=== PATIENT | male | born 1980 | race Caucasian/White ===

== ENCOUNTER 2024-08-15 11:53 | Emergency (ER) | payer OTHER, SELFPAY ==
--- NOTE | ~2024-08-15 | XR_ITS ---
EXAMINATION: XR chest 1V portable Exam Date/Time: 08/15/2024 16:06 CDT HISTORY: shortness of breath Comparison: None. RESULT: Lines, tubes, and devices: None. Lungs and pleura: No focal consolidation, pleural effusion, or pneumothorax. Slight rightward rotati on. Cardiomediastinal silhouette: Unremarkable. Other: No acute osseous or upper abdominal finding. IMPRESSION: No acute cardiopulmonary process. Reviewed, dictated and finalized at location K.
--- NOTE | ~2024-08-15 | CT_ITS ---
EXAMINATION: CT abdomen pelvis w con DATE: 08/15/2024 19:14 INDICATION: abd pain and bloating TECHNIQUE: Computed tomography (CT) of the abdomen and pelvis was performed with 100 mL Omnipaque-350 intravenous contrast. Automated exposure control and iterative reconstruction technique were employe d. The dose-length product was 1576.34 mGy-cm. COMPARISON: None. FINDINGS: Lower thorax: Unremarkable Liver: Diffusely low-density parenchyma. Biliary/Gallbladder: Gallbladder is normal. No bile duct dilation. Pancreas: No mass or duct dilation. Spleen: Normal. Adrenals:No mass. Kidneys: No suspicious mass, obstructing stone, or hydronephrosis. GI tract: No small or large bowel dilation. Normal appendix. Mesentery/Peritoneum: No ascites, mass, or free air. Retroperitoneum: No mass. Pelvis: Pelvic organs are within normal limits. Soft Tissues: Soft tissues and body wall unremarkable. Bones: No acute osseous finding. IMPRESSION: Hepatic steatosis. Otherwise unremarkable CT abdomen and pelvis findings. Reviewed, dictated and finalized at location K.
[2024-08-15 12:04] VITALS: BP 148/97; PULSE 98; RESP 20; TEMP 36.9; O2SAT 97
[2024-08-15 13:45] VITALS: BP 147/89; PULSE 83; TEMP 35.8; O2SAT 97
--- NOTE | 2024-08-15 15:25 | ECG_ITS ---
Test Date: 2024-08-15 15:27:27 Measurements Intervals [place] Rate: 85 P: 55 CO: 181 QRS: 11 QRSD: 102 T: 21 QT: 347 QTc: 414 Interpretive Statements SINUS RHYTHM POSSIBLE LEFT ATRIAL ENLARGEMENT BASELINE ARTIFACT- V3 BORDERLINE ECG No previous ECG available for comparison Electronically Signed On 08-15-2024 15:28:45 CDT by Edison Lua D.O.
[2024-08-15 15:45] VITALS: O2SAT 91
[2024-08-15 15:46] VITALS: BP 169/82; PULSE 86; RESP 18; TEMP 36.6; O2SAT 97
--- NOTE | 2024-08-15 15:47 | ED_ITS ---
HPI - SOB/Dyspnea General Chief Complaint: Shortness of Breath/Dyspnea <Mera Bravo DRYING MACHINE BACK TENDER - Last Filed: 08/15/24 15:50> Stated Complaint: Shortness of breath getting worse x 2 weeks <Mera Bravo APRN - Last Filed: 08/15/24 15:50> Time Seen by Provider: 08/15/24 15:15 <Mera Bravo APRN - Last Filed: 08/15/24 15:50> Focused HPI: Patient is a 43-year-old male who presents to the ER with increased shortness of breath that led to multiple syncopal episodes over the last week. He reports he was walking up 2 flights of stairs while at work today when he became very short of breath. One of patient's coworkers told him that his lower extremities look swollen and his boss advised him to go to the ER for evaluation. Patient denies any medical history and does not take any daily medications. He does endorse cigarette smoking and lower extremity edema. Patient denies chest pain but endorses discomfort in his chest. He denies any headaches, recent fevers, or acute back pain. GENERAL: Well-appearing, obese, and in mild respiratory distress. HEAD: Normocephalic, atraumatic. CHEST: Diminished bases upon auscultation. ?Slight respiratory distress. HEART: Regular rate and rhythm.? NEURO: ?Alert and oriented x3. Patient screened in triage and initial orders placed.? ?Additional care and disposition to be based upon?diagnostic testing and treatment. <Mera Bravo APRN - Last Filed: 08/15/24 15:50> Focused HPI: Patient is a 43-year-old male who presents to the ER with increased shortness of breath that led to multiple syncopal episodes over the last week. He reports he was walking up 2 flights of stairs while at work today when he became very short of breath. One of patient's coworkers told him that his lower extremities look swollen and his boss advised him to go to the ER for evaluation. Patient denies any medical history and does not take any daily medications. He does endorse cigarette smoking and lower extremity edema. Patient denies chest pain but endorses discomfort in his chest. He denies any headaches, recent fevers, or acute back pain. GENERAL: Well-appearing, obese, and in mild respiratory distress. HEAD: Normocephalic, atraumatic. CHEST: Diminished bases upon auscultation. ?Slight respiratory distress. HEART: Regular rate and rhythm.? NEURO: ?Alert and oriented x3. Patient screened in triage and initial orders placed.? ?Additional care and disposition to be based upon?diagnostic testing and treatment. <Shadi Vazquez MD - Last Filed: 08/15/24 22:15> History of Present Illness HPI Narrative: Agree with the HPI above and would like to add collateral information from family that states that patient has had a rapid weight gain over last 2 months and gone up 2 different pain size is despite eating healthier. Endorsing abdominal bloating. <Shadi Vazquez MD - Last Filed: 08/15/24 22:15> Related Data Allergies/Adverse Reactions: Allergies Allergy/AdvReac Type Severity Reaction Status Date / Time Penicillins Allergy Intermediate Hives Verified 08/15/24 11:54 <Mera Bravo APRN - Last Filed: 08/15/24 15:50> Review of Systems 2 Review of Systems: As reviewed above in HPI <Shadi Vazquez MD - Last Filed: 08/15/24 22:15> Exam 2 Narrative: GENERAL: [Well-appearing, well-nourished, and in no acute distress.] HEAD: [Normocephalic, atraumatic.] EYES: [PERRLA and EOMI.] ENT: Nares clear, no rhinorrhea or epistaxis. Mucous membranes moist. NECK: Supple. CHEST: [Clear to auscultation. No respiratory distress.] HEART: [Regular rate and rhythm]. No murmur heard. [Normal peripheral pulses.] ABDOMEN: Distended and tender to palpation, soft, no signs of peritonitis, [No rigidity or guarding] EXTREMITIES: Normal range of motion. [No edema.] SKIN: Warm, dry, no rash. NEURO: [No focal deficits]. Alert and oriented [x3.] PSYCH: [Normal mood and affect.] <Shadi Vazquez MD - Last Filed: 08/15/24 22:15> Course Vital Signs Vital signs: Vital Signs Temperature 36.9 C 08/15/24 12:04 Pulse Rate 98 08/15/24 12:04 Respiratory Rate 20 08/15/24 12:04 Blood Pressure 148/97 H 08/15/24 12:04 Pulse Oximetry 97 08/15/24 12:04 Oxygen Delivery Room Air 08/15/24 12:04 Temperature 36.6 C 08/15/24 15:46 Pulse Rate 84 08/15/24 15:53 Respiratory Rate 18 08/15/24 15:53 Blood Pressure 120/78 08/15/24 15:53 Pulse Oximetry 95 08/15/24 15:53 Oxygen Delivery Room Air 08/15/24 15:45 <Mera Bravo, DRYING MACHINE BACK TENDER - Last Filed: 08/15/24 15:50> Vital Signs Temperature 36.9 C 08/15/24 12:04 Pulse Rate 98 08/15/24 12:04 Respiratory Rate 20 08/15/24 12:04 Blood Pressure 148/97 H 08/15/24 12:04 Pulse Oximetry 97 08/15/24 12:04 Oxygen Delivery Room Air 08/15/24 12:04 Temperature 36.6 C 08/15/24 15:46 Pulse Rate 84 08/15/24 15:53 Respiratory Rate 18 08/15/24 15:53 Blood Pressure 120/78 08/15/24 15:53 Pulse Oximetry 95 08/15/24 15:53 Oxygen Delivery Room Air 08/15/24 15:45 <Shadi Vazquez MD - Last Filed: 08/15/24 22:15> MDM - SOB/Dyspnea MDM Narrative Medical decision making narrative: 43-year-old male presenting with several weeks of difficulty in breathing with exertion, feeling tired and malaise as well as rapid weight gain and abdominal bloating and distention with constipation. Denies any nausea, vomiting or diarrhea. No chest pain shortness a breath at rest. States that he gets short of breath even with minimal exertion. No cardiac history, has not seen a medical provider in several years and does not have a PCP. No fever, chills. His abdomen is distended and tender to palpation but no overlying skin changes or signs of peritonitis. Normal vital signs, nonpitting edema, clear breath sounds and strong symmetric pulses throughout. Suspect potential rapid weight gain could be a potential intra-abdominal process or infection versus malignant process. TSH ordered for potential endocrine pathology, electrolytes ordered. CBC, CMP, lipase. EKG and chest x-ray as well as troponin and BNP obtained. Workup is unrevealing, no leukocytosis or anemia. Slightly low but unremarkable platelet count. Normal coagulation panel. Electrolytes are unremarkable, normal creatinine, normal glucose, normal LFTs. Negative troponin, negative BNP. Normal TSH. Urinalysis shows some dehydration and ketones but otherwise unremarkable. Negative urine drug screen. Chest x-ray shows no acute cardiopulmonary process. CT of the abdomen pelvis shows hepatic steatosis otherwise no acute findings. EKG shows sinus rhythm. Patient's expressed concern about possibility of undiagnosed sleep apnea given patient's difficulty with sleep, insomnia and waking up frequently at the night, gasping for breath. Very clinically does match obstructive sleep apnea and could be a cause of patient's symptomatology including feeling malaise tired and having some shortness of breath. He does have an upcoming prior and may care provider appointment in several weeks and encouraged him to follow-up with them about this including the workup here today but he otherwise has no acute urgent or emergent concerns and is safe for discharge. Family and patient felt comfortable and patient was safely discharged. <Shadi Vazquez MD - Last Filed: 08/15/24 22:15> Medical Records Attestation: I reviewed the patient's medical records. <Shadi Vazquez MD - Last Filed: 08/15/24 22:15> Lab Data Attestation: I reviewed the patient's lab results. <Shadi Vazquez MD - Last Filed: 08/15/24 22:15> Result diagrams: 08/15/24 15:42 08/15/24 15:42 <Mera Bravo APRN - Last Filed: 08/15/24 15:50> Labs: Lab Results 08/15/24 08/15/24 08/15/24 Range/Units 15:41 15:42 15:49 WBC 9.9 (4.5-10.0) K/mm3 RBC 5.46 (4.6-6.20) M/mm3 Hgb 16.2 (14.0-18.0) g/dL Hct 47.2 (42.0-52.0) % MCV 86.4 (80-100) fl MCH 29.7 (26-34) pg MCHC 34.3 (32-36) g/dl RDW 13.0 (11.5-14.5) % Plt Count 139 L (150-375) k/mm3 MPV 12.4 H (7.4-10.4) fl Immature Gran % (Auto) 0.8 H (0-0.5) % Neut % (Auto) 56.2 (45.5-73.1) % Lymph % (Auto) 31.3 (18.3-44.2) % [place] % (Auto) 10.2 H (2.6-8.5) % Eos % (Auto) 1.0 (0-4.4) % Baso % (Auto) 0.5 (0.2-1.2) % Lymph # (Auto) 3.09 (0.9-3.2) K/mm3 [place] # (Auto) 1.0 H (0.1-0.6) K/mm3 Eos # (Auto) 0.1 (0-0.3) K/mm3 Baso # (Auto) 0.1 (0.0-0.1) K/mm3 Abs Immat Gran (auto) 0.08 H (0.00-0.031) K/mm3 Absolute Neuts (auto) 5.6 (1.3-6.7) K/mm3 Absolute Nucleated RBC 0.000 (0.0-0.012) K/mm3 Nucleated RBC % 0.0 (0.0-0.2) % % Immature Plt Fraction 19.1 H (0.9-11.2) % PT 13.3 (11.1-14.7) Seconds INR 1.0 APTT 28.8 (22.3-36.8) Seconds Sodium 138 (137-145) mmol/L Potassium 4.1 (3.4-5.0) mmol/L Chloride 105 (98-107) mmol/L Carbon Dioxide 23 (22-30) mmol/L Anion Gap 10 (4-12) mmol/L BUN 7 L (9-20) mg/dL Creatinine 0.57 L (0.7-1.3) mg/dL Estim Creat Clear Calc 191 ml/min Estimated GFR > 60 (59 - ) Glucose 85 (65-110) mg/dL POC Capillary Glucose 91 (65-105) mg/dl Calcium 9.6 (8.4-10.2) mg/dL Total Bilirubin 0.7 (0.2-1.3) mg/dL AST 37 (17-59) U/L ALT 54 H (6-50) U/L Alkaline Phosphatase 73 (38-126) U/L Troponin I < 0.012 (0.000-0.034) ng/mL NT-Pro-B Natriuret Pep < 20 (19.9-100) pg/mL Total Protein 7.7 (6.3-8.2) g/dL Albumin 4.5 (3.5-5.1) g/dL TSH (Reflex) 0.967 (0.465-4.68) uIU/mL Urine Color (Yellow) Urine Appearance (Clear) Urine pH (5.0-9.0) Ur Specific [place] (1.001-1.035) Urine Protein (Negative) mg/dL Urine Glucose (UA) (Negative) mg/dL Urine Ketones (Negative) mg/dL Ur Blood (Man) (Negative) Urine Nitrate (Negative) Urine Bilirubin (Negative) Urine Urobilinogen (<2.0) mg/dL Leukocyte Esterase Rfl (Negative) FERNANDO/UL Urine RBC (0-2) /hpf Urine WBC (0-3) /hpf Ur Squamous Epith Cells (Few) /hpf Urine Bacteria /hpf Urine Casts Urine Opiates Screen (Negative) Urine Methadone Screen (Negative) Ur Barbiturates Screen (Negative) Ur Phencyclidine Scrn (Negative) Ur Amphetamine Screen (Negative) U Benzodiazepines Scrn (Negative) Urine Cocaine Screen (Negative) U Cannabinoids Screen (Negative) 08/15/24 Range/Units 19:40 WBC (4.5-10.0) K/mm3 RBC (4.6-6.20) M/mm3 Hgb (14.0-18.0) g/dL Hct (42.0-52.0) % MCV (80-100) fl MCH (26-34) pg MCHC (32-36) g/dl RDW (11.5-14.5) % Plt Count (150-375) k/mm3 MPV (7.4-10.4) fl Immature Gran % (Auto) (0-0.5) % Neut % (Auto) (45.5-73.1) % Lymph % (Auto) (18.3-44.2) % [place] % (Auto) (2.6-8.5) % Eos % (Auto) (0-4.4) % Baso % (Auto) (0.2-1.2) % Lymph # (Auto) (0.9-3.2) K/mm3 [place] # (Auto) (0.1-0.6) K/mm3 Eos # (Auto) (0-0.3) K/mm3 Baso # (Auto) (0.0-0.1) K/mm3 Abs Immat Gran (auto) (0.00-0.031) K/mm3 Absolute Neuts (auto) (1.3-6.7) K/mm3 Absolute Nucleated RBC (0.0-0.012) K/mm3 Nucleated RBC % (0.0-0.2) % % Immature Plt Fraction (0.9-11.2) % PT (11.1-14.7) Seconds INR APTT (22.3-36.8) Seconds Sodium (137-145) mmol/L Potassium (3.4-5.0) mmol/L Chloride (98-107) mmol/L Carbon Dioxide (22-30) mmol/L Anion Gap (4-12) mmol/L BUN (9-20) mg/dL Creatinine (0.7-1.3) mg/dL Estim Creat Clear Calc ml/min Estimated GFR (59 - ) Glucose (65-110) mg/dL POC Capillary Glucose (65-105) mg/dl Calcium (8.4-10.2) mg/dL Total Bilirubin (0.2-1.3) mg/dL AST (17-59) U/L ALT (6-50) U/L Alkaline Phosphatase (38-126) U/L Troponin I (0.000-0.034) ng/mL NT-Pro-B Natriuret Pep (19.9-100) pg/mL Total Protein (6.3-8.2) g/dL Albumin (3.5-5.1) g/dL TSH (Reflex) (0.465-4.68) uIU/mL Urine Color Yellow (Yellow) Urine Appearance Clear (Clear) Urine pH 5.5 (5.0-9.0) Ur Specific [place] > 1.045 H (1.001-1.035) Urine Protein Trace (Negative) mg/dL Urine Glucose (UA) 2+ H (Negative) mg/dL Urine Ketones Trace H (Negative) mg/dL Ur Blood (Man) Negative (Negative) Urine Nitrate Negative (Negative) Urine Bilirubin Negative (Negative) Urine Urobilinogen 1.0 (<2.0) mg/dL Leukocyte Esterase Rfl Negative (Negative) FERNANDO/UL Urine RBC 0-2 (0-2) /hpf Urine WBC 0-5 (0-3) /hpf Ur Squamous Epith Cells None seen (Few) /hpf Urine Bacteria None seen /hpf Urine Casts 0-2 Urine Opiates Screen Negative (Negative) Urine Methadone Screen Negative (Negative) Ur Barbiturates Screen Negative (Negative) Ur Phencyclidine Scrn Negative (Negative) Ur Amphetamine Screen Negative (Negative) U Benzodiazepines Scrn Negative (Negative) Urine Cocaine Screen Negative (Negative) U Cannabinoids Screen Negative (Negative) <Mera Bravo, DRYING MACHINE BACK TENDER - Last Filed: 08/15/24 15:50> Lab Results 08/15/24 08/15/24 08/15/24 Range/Units 15:41 15:42 15:49 WBC 9.9 (4.5-10.0) K/mm3 RBC 5.46 (4.6-6.20) M/mm3 Hgb 16.2 (14.0-18.0) g/dL Hct 47.2 (42.0-52.0) % MCV 86.4 (80-100) fl MCH 29.7 (26-34) pg MCHC 34.3 (32-36) g/dl RDW 13.0 (11.5-14.5) % Plt Count 139 L (150-375) k/mm3 MPV 12.4 H (7.4-10.4) fl Immature Gran % (Auto) 0.8 H (0-0.5) % Neut % (Auto) 56.2 (45.5-73.1) % Lymph % (Auto) 31.3 (18.3-44.2) % [place] % (Auto) 10.2 H (2.6-8.5) % Eos % (Auto) 1.0 (0-4.4) % Baso % (Auto) 0.5 (0.2-1.2) % Lymph # (Auto) 3.09 (0.9-3.2) K/mm3 [place] # (Auto) 1.0 H (0.1-0.6) K/mm3 Eos # (Auto) 0.1 (0-0.3) K/mm3 Baso # (Auto) 0.1 (0.0-0.1) K/mm3 Abs Immat Gran (auto) 0.08 H (0.00-0.031) K/mm3 Absolute Neuts (auto) 5.6 (1.3-6.7) K/mm3 Absolute Nucleated RBC 0.000 (0.0-0.012) K/mm3 Nucleated RBC % 0.0 (0.0-0.2) % % Immature Plt Fraction 19.1 H (0.9-11.2) % PT 13.3 (11.1-14.7) Seconds INR 1.0 APTT 28.8 (22.3-36.8) Seconds Sodium 138 (137-145) mmol/L Potassium 4.1 (3.4-5.0) mmol/L Chloride 105 (98-107) mmol/L Carbon Dioxide 23 (22-30) mmol/L Anion Gap 10 (4-12) mmol/L BUN 7 L (9-20) mg/dL Creatinine 0.57 L (0.7-1.3) mg/dL Estim Creat Clear Calc 191 ml/min Estimated GFR > 60 (59 - ) Glucose 85 (65-110) mg/dL POC Capillary Glucose 91 (65-105) mg/dl Calcium 9.6 (8.4-10.2) mg/dL Total Bilirubin 0.7 (0.2-1.3) mg/dL AST 37 (17-59) U/L ALT 54 H (6-50) U/L Alkaline Phosphatase 73 (38-126) U/L Troponin I < 0.012 (0.000-0.034) ng/mL NT-Pro-B Natriuret Pep < 20 (19.9-100) pg/mL Total Protein 7.7 (6.3-8.2) g/dL Albumin 4.5 (3.5-5.1) g/dL TSH (Reflex) 0.967 (0.465-4.68) uIU/mL Urine Color (Yellow) Urine Appearance (Clear) Urine pH (5.0-9.0) Ur Specific [place] (1.001-1.035) Urine Protein (Negative) mg/dL Urine Glucose (UA) (Negative) mg/dL Urine Ketones (Negative) mg/dL Ur Blood (Man) (Negative) Urine Nitrate (Negative) Urine Bilirubin (Negative) Urine Urobilinogen (<2.0) mg/dL Leukocyte Esterase Rfl (Negative) FERNANDO/UL Urine RBC (0-2) /hpf Urine WBC (0-3) /hpf Ur Squamous Epith Cells (Few) /hpf Urine Bacteria /hpf Urine Casts Urine Opiates Screen (Negative) Urine Methadone Screen (Negative) Ur Barbiturates Screen (Negative) Ur Phencyclidine Scrn (Negative) Ur Amphetamine Screen (Negative) U Benzodiazepines Scrn (Negative) Urine Cocaine Screen (Negative) U Cannabinoids Screen (Negative) 08/15/24 Range/Units 19:40 WBC (4.5-10.0) K/mm3 RBC (4.6-6.20) M/mm3 Hgb (14.0-18.0) g/dL Hct (42.0-52.0) % MCV (80-100) fl MCH (26-34) pg MCHC (32-36) g/dl RDW (11.5-14.5) % Plt Count (150-375) k/mm3 MPV (7.4-10.4) fl Immature Gran % (Auto) (0-0.5) % Neut % (Auto) (45.5-73.1) % Lymph % (Auto) (18.3-44.2) % [place] % (Auto) (2.6-8.5) % Eos % (Auto) (0-4.4) % Baso % (Auto) (0.2-1.2) % Lymph # (Auto) (0.9-3.2) K/mm3 [place] # (Auto) (0.1-0.6) K/mm3 Eos # (Auto) (0-0.3) K/mm3 Baso # (Auto) (0.0-0.1) K/mm3 Abs Immat Gran (auto) (0.00-0.031) K/mm3 Absolute Neuts (auto) (1.3-6.7) K/mm3 Absolute Nucleated RBC (0.0-0.012) K/mm3 Nucleated RBC % (0.0-0.2) % % Immature Plt Fraction (0.9-11.2) % PT (11.1-14.7) Seconds INR APTT (22.3-36.8) Seconds Sodium (137-145) mmol/L Potassium (3.4-5.0) mmol/L Chloride (98-107) mmol/L Carbon Dioxide (22-30) mmol/L Anion Gap (4-12) mmol/L BUN (9-20) mg/dL Creatinine (0.7-1.3) mg/dL Estim Creat Clear Calc ml/min Estimated GFR (59 - ) Glucose (65-110) mg/dL POC Capillary Glucose (65-105) mg/dl Calcium (8.4-10.2) mg/dL Total Bilirubin (0.2-1.3) mg/dL AST (17-59) U/L ALT (6-50) U/L Alkaline Phosphatase (38-126) U/L Troponin I (0.000-0.034) ng/mL NT-Pro-B Natriuret Pep (19.9-100) pg/mL Total Protein (6.3-8.2) g/dL Albumin (3.5-5.1) g/dL TSH (Reflex) (0.465-4.68) uIU/mL Urine Color Yellow (Yellow) Urine Appearance Clear (Clear) Urine pH 5.5 (5.0-9.0) Ur Specific Mom[place] > 1.045 H (1.001-1.035) Urine Protein Trace (Negative) mg/dL Urine Glucose (UA) 2+ H (Negative) mg/dL Urine Ketones Trace H (Negative) mg/dL Ur Blood (Man) Negative (Negative) Urine Nitrate Negative (Negative) Urine Bilirubin Negative (Negative) Urine Urobilinogen 1.0 (<2.0) mg/dL Leukocyte Esterase Rfl Negative (Negative) FERNANDO/UL Urine RBC 0-2 (0-2) /hpf Urine WBC 0-5 (0-3) /hpf Ur Squamous Epith Cells None seen (Few) /hpf Urine Bacteria None seen /hpf Urine Casts 0-2 Urine Opiates Screen Negative (Negative) Urine Methadone Screen Negative (Negative) Ur Barbiturates Screen Negative (Negative) Ur Phencyclidine Scrn Negative (Negative) Ur Amphetamine Screen Negative (Negative) U Benzodiazepines Scrn Negative (Negative) Urine Cocaine Screen Negative (Negative) U Cannabinoids Screen Negative (Negative) <Shadi Vazquez MD - Last Filed: 08/15/24 22:15> Imaging Data Attestation: I personally reviewed and interpreted this imaging study as follows: < Shadi Vazquez MD - Last Filed: 08/15/24 22:15> My impression: Impressions Chest X-Ray 08/15/24 16:23 IMPRESSION: No acute cardiopulmonary process. Abdomen/Pelvis CT 08/15/24 19:15 IMPRESSION: Hepatic steatosis. Otherwise unremarkable CT abdomen and pelvis findings. <Shadi Vazquez MD - Last Filed: 08/15/24 22:15> Discharge Plan Discharge Clinical Impression: SOB (shortness of breath), Constipation, Sleep apnea-like behavior, Fatty liver <Mera Bravo APRN - Last Filed: 08/15/24 15:50> Patient Disposition: Home <Mera Bravo APRN - Last Filed: 08/15/24 15:50> Condition: Stable <Mera Bravo APRN - Last Filed: 08/15/24 15:50> Instructions: Antibiotic Form, Constipation (DC), Shortness of Breath (ED) <Mera Bravo APRN - Last Filed: 08/15/24 15:50> Additional Instructions: Your symptoms could be a combination of factors including undiagnosed sleep apnea causing your shortness of breath and difficulty sleeping at night. I do have some fatty infiltrates of your liver which is likely a chronic process but also may be contributing to overall health. Follow-up with your primary care provider on the of this month and return with any new or worsening concerns at any time. <Mera Bravo APRN - Last Filed: 08/15/24 15:50> Patient Language: E[place]rean <Mera Bravo APRN - Last Filed: 08/15/24 15:50> Prescriptions: New magnesium hydroxide [Milk of Magnesia] 400 mg/5 mL suspension 15 ml PO BID PRN (Reason: constipation) Qty: 355 0RF polyethylene glycol 3350 [Miralax] 17 gram/dose powder 17 g PO BID Qty: 119 0RF <Mera Bravo APRN - Last Filed: 08/15/24 15:50> Follow-up/Referrals: PHYSICIAN,MANAGER PRIMARY CARE [Non-Staff] - <Mera Bravo APRN - Last Filed: 08/15/24 15:50> Time of Disposition: 20:25 <Mera Bravo APRN - Last Filed: 08/15/24 15:50> 20:25 <Shadi Vazquez MD - Last Filed: 08/15/24 22:15>
[2024-08-15 15:48] LABS: Basophils Absolute Auto 0.1 K/mm3 (0.0-0.1); Basophils Percent Auto 0.5 % (0.2-1.2); Eosinophils Absolute Auto 0.1 K/mm3 (0-0.3); Hematocrit 47.2 % (42.0-52.0); Hemoglobin 16.2 g/dL (14.0-18.0); Immature Granulocyte Absolute 0.08 K/mm3 (0.00-0.031); Immature Granulocyte Percent A 0.8 % (0-0.5); Immature Platelet Fraction Pct 19.1 % (0.9-11.2); Lymphocytes Absolute Auto 3.09 K/mm3 (0.9-3.2); Lymphocytes Percent Auto 31.3 % (18.3-44.2); Mean Corpuscular HGB Conc 34.3 g/dl (32-36); Mean Corpuscular Hemoglobin 29.7 pg (26-34); Mean Corpuscular Volume 86.4 fl (80-100); Mean Platelet Volume 12.4 fl (7.4-10.4); Monocytes Percent Auto 10.2 % (2.6-8.5); Neutrophils Absolute Auto 5.6 K/mm3 (1.3-6.7); Neutrophils Percent Auto 56.2 % (45.5-73.1); Platelet Count Result 139 k/mm3 (150-375); Red Blood Count 5.46 M/mm3 (4.6-6.20); White Blood Count 9.9 K/mm3 (4.5-10.0)
[2024-08-15 15:52] LABS: Glucose Point of Care 91 mg/dl (65-105)
[2024-08-15 15:53] VITALS: BP 120/78; PULSE 84; RESP 18; O2SAT 95
--- NOTE | 2024-08-15 15:53 | PC.NURSE ---
Pt unable to give urine sample at this time.
[2024-08-15 15:58] LABS: Alanine Aminotransferase 54 U/L (6-50); Albumin Level 4.5 g/dL (3.5-5.1); Alkaline Phosphatase 73 U/L (38-126); Anion Gap 10 mmol/L (4-12); Aspartate Amino Transferase 37 U/L (17-59); Bilirubin,Total 0.7 mg/dL (0.2-1.3); Blood Urea Nitrogen 7 mg/dL (9-20); Calcium 9.6 mg/dL (8.4-10.2); Carbon Dioxide 23 mmol/L (22-30); Chloride 105 mmol/L (98-107); Estimated CRCL calculation 191 ml/min; Estimated Glomerular Filt Rate > 60; Glucose 85 mg/dL (65-110); Potassium 4.1 mmol/L (3.4-5.0); Sodium 138 mmol/L (137-145); Total Protein 7.7 g/dL (6.3-8.2)
[2024-08-15 16:10] LABS: Prothrombin Time 13.3 Seconds (11.1-14.7)
[2024-08-15 16:11] LABS: Partial Thromboplastin Time 28.8 Seconds (22.3-36.8)
[2024-08-15 16:15] LABS: NT Pro B Type Natriuretic Pept < 20 pg/mL (19.9-100); Troponin I < 0.012 ng/mL (0.000-0.034)
--- OUTSIDE RECORDS SUMMARY | 2024-08-15 16:45 | XMS_ITS | Clinical Summary ---
Author Organization [facility] [employer] Address [address] [place] [address] Care Team Providers Care Variety Lathe Operator Name Role Phone PcpTed -Fm Primary Care Provider U navailable Source Comments [facility] [employer],non-owned Affiliates and Associated Physician Practices is amultiple site organization consisting of ambulatory clinics and hospital sitesin [place], [place], [place]. This disclosure is being madepursuant to the Care Everywhere program and may not contain all information available regarding this patient. Last updated 17.[facility] [employer] Allergies Active Allergy Reactions Criticality Noted Date Comments Penicillins Other 09/07/2017 Patient does not remember since he was child Medications * Be aware that medications may not be up to date on this document. Alwaysverify current medications with the patient. vitamin D3 (CHOLECALCIFEROL) 25 MCG (1000 UNITS) tablet Take 1,000 Units by mouth 2 times daily Active Salida-3 Fatty Acids (FISH OIL) 1000 MG capsule Take 1,000 mg by mouth 2 times daily Active Multiple Vitamin Take 1 tablet by mouth once daily Active losartan - hydroCHLOROthiazide (HYZAAR) 50-12.5 MG tablet Take 1 (one) tablet by mouth once daily 90 tablet 3 03/15/19 21 Active fenofibrate (TRICOR) 145 MG tablet Take 1 (one) tablet by mouth once daily 30 tablet 1 03/15/19 21 Active diclofenac sodium (VOLTAREN) 1 % gel Apply 4 (four) g to affected area 4 times daily 2 gm amount for elbow, wrist or hand 4 gm amount for knee, ankle or foot 150 g 3 03/15/19 21 Active Hospital, Clinic, or Other Facility Administered Medication Ordered Dose Route Frequency Start Date End Date Status 0.9% NaCl injection 10 mLIndications:MILES (dyspnea on exertion) 10 mL IK PRN 11/10/2019 Active Active Problems Problem Noted Date Diagnosed Date FH: CAD (coronary artery disease) 11/07/2019 Obesity (BMI 30.0-34.9) 10/31/2019 MILES (dyspnea on exertion) 10/31/2019 Obstructive sleep apnea syndrome 10/31/2019 Chronic fatigue 10/31/2019 Gastroesophageal reflux disease without esophagi tis 10/31/2019 Precordial pain 10/31/2019 Other hyperlipidemia 10/31/2019 Asthma in child 10/31/2019 Hyperlipidemia Chest pain Dyspnea on exertion Immunizations Immunization Administration Dates Next Due TDAP (7yrs+) 10/31/2019 iNFLUENZA VACCINE, RECOM-STONE, QUADR. (FLUBLOCK QUADRIVALENT; 18Y+) (RIV4) 10/31/2019 Family History Medical History Relation Name Comments CAD (Coronary Artery Disease) Brother CAD (Coronary Artery Disease) Father High Cholesterol Father Hypertension Father CAD (Coronary Artery Disease) Mother Hypertension Mother Relation Name Status Comments Brother Father Alive Mother Alive Social History Tobacco Use Types Packs/Day Years Used Date Smoking Tobacco: Every Day Cigarettes 0.5 29.5 Started: 1995 Smokeless Tobacco: Never Tobacco Cessation:Ready to Q uit: No; Counseling Given: No Alcohol Use Standard Drinks/Week Comments Yes 0 (1 standard drink = 0.6 oz pur e alcohol) social Sex and Gender Information Value Date Recorded Sex Assigned at Not on file Legal Sex Male 8:31 AM WARP PICKER Gender Identity Not on file Sexual Orientation Not on file Last Filed Vital Signs Vital Sign Reading Time Taken Comments Blood Pressure 134/83 03/15/2020 4:12 PM WARP PICKER Pulse 87 03/15/2020 4:12 PM WARP PICKER Temperature 37 C (98.6 F) 03/15/2020 4:12 PM WARP PICKER Respiratory Rate 18 03/15/2020 4:12 PM WARP PICKER Oxygen Saturation 99% 03/15/2020 4:12 PM WARP PICKER Inhaled Oxygen Concentration - - Weight 126.7 kg (279 lb 6.4 oz) 03/15/2020 4:12 PM WARP PICKER Height 172.7 cm (5' 8) 03/15/2020 4:12 PM WARP PICKER Body Mass Index 42.48 03/15/2020 4:12 PM WARP PICKER Plan of Treatment Health Maintenance Due Date Last Done Comments HIV SCREENING 08/20/1994 HEPATITIS C SCREENING 08/16/1997 HEPATITIS B VACCINE (1 of 3 - 19+ 3-dose series) 08/20/1998 SCREENING FOR DIABETES 11/02/2022 0, 09/22/2018, 09/22/2018, Additional history exists COVID-19 VACCINE ( - season) 2023 DEPRESSION SCREENING 02/17/2024 INFLUENZA VACCINE (Season Ended) 2024 10/31/2019 LIPID TESTING 11/28/2024 11/29/2019, 11/03/2019 ZOSTER VACCINE (1 of 2) 08/20/2029 DTAP/TDAP/TD VACCINES (2 - Td or Tdap) 10/30/2029 10/31/2019 HIB VACCINE Aged Out No longer eligi ble based on patient's age to complete this topic HPV VACCINE Aged Out No longer eligi ble based on patient's age to complete this topic MENINGOCOCCAL (Group B) VACCINE SHARED DECISION-MAKING Aged Out No longer eligible based on patient's age to complete this topic MENINGOCOCCAL GROUPS A/C/Y/W VACCINE Aged Out No longer eligible based on patient's age to complete this topic PNEUMOCOCCAL VACCINE Discontinued Procedures Procedure Name Priority Date/Time Associated Diagnosis Comments LIPID PROFILE Routine 11/29/2019 7:35 AM CDT Mixed hyperlipidemia COMPREHENSIVE METABOLIC PANEL Routine 11/03/2019 8:56 AM CDT Routine general medical examination at a health care facility from Last 3 Months or Most Recently Relevant to Health Maintenance Results * (ABNORMAL) LIPID PROFILE (11/29/2019 7:35 AM CDT) Cholesterol 206(H) 100 - 199 mg/dL [facility] ACCOUNT BILL Triglycerides 412(H) 0 - 149 mg/dL [facility] ACCOUNT BILL HDL Cholesterol 31(L) >39 mg/dL [facility] ACCOUNT BILL VLDL Calculated 70(H) 5 - 40 mg/dL [facility] ACCOUNT BILL LDL Calculated 105(H) 0 - 99 mg/dL [facility] ACCOUNT BILL Comment NOT NEEDED [facility] ACCOUNT BILL Comment: FASTING Ancillary determined the test is not needed. Blood BLOOD SPECIMEN / Unknown 11/29/2019 7:35 AM CDT 11/29/2019 Narrative Resulting Agency Comment Lab [facility] performed at: [facility] [address] [id number] Jarvis Greenfield MD LAB - CHEMISTRY ORDERABLES Final Result [facility] ACCOUNT BILL [address] [place] [address] * (ABNORMAL) COMPREHENSIVE METABOLIC PANEL (11/03/2019 8:56 AM CDT) Pathologist [facility] Glucose 100(H) 65 - 99 mg/dL [facility] INSURANCE BILL BUN 11 6 - 24 mg/dL [facility] INSURANCE BILL Creatinine 0.72(L) 0.76 - 1.27 mg/dL [facility] INSURANCE BILL BUN/Creatinine Ratio 15 9 - 20 [facility] INSURANCE BILL Sodium 139 134 - 144 mmol/L [facility] INSURANCE BILL Potassium 4.2 3.5 - 5.2 mmol/L [facility] INSURANCE BILL Chloride 103 96 - 106 mmol/L [facility] INSURANCE BILL CO2 22 20 - 29 mmol/L [facility] INSURANCE BILL Calcium 9.2 8.7 - 10.2 mg/dL [facility] INSURANCE BILL Protein Total 6.8 6.0 - 8.5 g/dL [facility] INSURANCE BILL Albumin 4.1 4.0 - 5.0 g/dL [facility] INSURANCE BILL Globulin Total 2.7 1.5 - 4.5 g/dL [facility] INSURANCE BILL Albumin/Globulin Ratio 1.5 1.2 - 2.2 [facility] INSURANCE BILL Bilirubin Total 0.4 0.0 - 1.2 mg/dL [facility] INSURANCE BILL Alkaline Phosphatase 71 39 - 117 IU/L [facility] INSURANCE BILL AST 26 0 - 40 IU/L [facility] INSURANCE BILL ALT 41 0 - 44 IU/L [facility] INSURANCE BILL Blood BLOOD SPECIMEN / Unknown 11/03/2019 8:56 AM CDT 11/03/2019 Narrative Resulting Agency Comment Lab Testing performed at: [facility] [address] [id number] [place] Jarvis Greenfield MD LAB - CHEMISTRY ORDERABLES Final Result [facility] INSURANCE BILL [address] [place] [address] from Last 3 Months or Most Recently Relevant to Health Maintenance Insurance Care Teams Variety Lathe Operator Relationship Specialty Start Date End Date Ted Guerrier PCP - General 09/12/22
--- OUTSIDE RECORDS SUMMARY | 2024-08-15 16:45 | XMS_ITS | Clinical Summary ---
Author Organization [facility] Address [address] [address] [place] [address] Phone Care Team Providers Care Cnc Specialist Name Role Phone Unavailable Primary Care Provider Unavailabl e Allergies Active Allergy Reactions Criticality Noted Date Comments Penicillins Unknown 12/15/2017 Medications HYDROcodone-aceta minophen (NORCO) 5-325 mg tablet Take 1 Tablet by mouth every 6 hours as needed for Pain. Max Daily Amount: 4 Tablets 6 Tablet 8 Active ondansetron (ZOFRAN ODT) 4 mg Tablet, Rapid Dissolve Take 1 Tablet (4 mg) by mouth every 6 hours as needed for Nausea Dissolve tablet on top of tongue, then swallow with saliva.. 15 Tablet 8 Active acetaminophen-caf feine-butalbital (FIORICET) 325-40-50 mg tablet Take 1 Tablet by mouth every 4 hours as needed for Headaches. 15 Tablet 9 Active prochlorperazine maleate (COMPAZINE) 10 mg tablet Take 1 Tablet (10 mg) by mouth every 6 hours as needed for Nausea. 15 Tablet None 9 Active ketorolac tromethamine (TORADOL) 10 mg tablet Take 1 Tablet (10 mg) by mouth every 6 hours as needed for Pain. 12 Tablet None 9 Active Social History Tobacco Use Types Packs/Day Years Used Date Smoking Tobacco: Every Day Smokeless Tobacco: Never Sex and Gender Information Value Date Recorded Sex Assigned at Not on file Legal Sex Male 12:50 AM CDT Gender Identity Not on file Sexual Orientation Not on file Last Filed Vital Signs Vital Sign Reading Time Taken Comments Blood Pressure 122/82 09/22/2018 3:15 PM CDT Pulse 67 09/22/2018 3:00 PM CDT Temperature 37.2 C (99 F) 09/22/2018 11:11 AM CDT Respiratory Rate 11 09/22/2018 3:00 PM CDT Oxygen Saturation 94% 09/22/2018 3:00 PM CDT Inhaled Oxygen Concentration - - Weight 104.3 kg (230 lb) 09/22/2018 11:11 AM CDT Height 170.2 cm (5' 7) 09/22/2018 11:11 AM CDT Body Mass Index 36.02 09/22/2018 11:11 AM CDT Plan of Treatment Health Maintenance Due Date Last Done Comments DTAP/TDAP/TD VACCINES (1 - Tdap) 08/20/1998 HEPATITIS B VACCINES (1 of 3 - 19+ 3-dose series) 08/20/1998 INFLUENZA VACCINE (#1) 2023 HPV VACCINES Aged Out No longer eligi ble based on patient's age to complete this topic
--- OUTSIDE RECORDS SUMMARY | 2024-08-15 16:45 | XMS_ITS | Clinical Summary ---
Author Organization [facility] Address [address] [place] [address] Care Team Providers Care Senior Mechanical Development Engineer Name Role Phone No, Physician Primary Care Provider [phone] Allergies Active Allergy Reactions Criticality Noted Date Comments Penicillins Other (See comments) Low 01/15/2022 Unknown, pt states he was told Medications polyethylene glycol (MIRALAX) 17 gram/dose bulk powder Take 17 g by mouth daily 238 g 06/21/2024 Active Encounters Date Type Department Care Team Description 06/20/2024 9:47 PM CDT - 06/21/2024 1:10 AM CDT [facility] Emergency Department [address] [place] [address] Bin Esposito MD Abdominal pain (Primary Dx); Constipation, unspecified constipation type Discharge Disposition: Discharge to home or self care from Last 3 Months Immunizations Immunization Administration Dates Next Due Tdap 01/15/2022 Social History Tobacco Use Types Packs/Day Years Used Date Smoking Tobacco: Never Assessed Personal Safety Answer Date Recorded Have you ever been in or are you currently in a harmful physical or emotional relationship or is someone making you feel afraid or unsafe? Denies 06/20/2024 Sex and Gender Information Value Date Recorded Sex Assigned at Not on file Legal Sex Male 8:15 PM ECONOMIC SPECIALIST Gender Identity Not on file Sexual Orientation Not on file Last Filed Vital Signs Vital Sign Reading Time Taken Comments Blood Pressure 126/74 06/21/2024 12:00 AM CDT Pulse 82 06/21/2024 12:00 AM CDT Temperature 36.7 C (98 F) 06/20/2024 9:13 PM CDT Respiratory Rate 18 06/20/2024 9:13 PM CDT Oxygen Saturation 95% 06/21/2024 12: 00 AM CDT Inhaled Oxygen Concentration - - Weight 126.8 kg (279 lb 8.7 oz) 01/15/2022 9:31 PM ECONOMIC SPECIALIST Height - - Body Mass Index - - Plan of Treatment Health Maintenance Due Date Last Done Comments Depression Screening 1979 Hepatitis C Screening 1979 Varicella Vaccines (1 of 2 - 13+ 2-dose series) 08/20/1992 Hepatitis B Screening 08/20/1997 Regular Well Visit/Exam 18-64 08/20/1997 Pneumococcal vaccine <65 (1 of 2 - PCV) 08/20/1998 Influenza Vaccine (Season Ended) 2024 10/31/2019 DTaP/Tdap/Td Vaccine (3 - Td or Tdap) 01/16/2032 01/15/2022, 10/31/2019 HPV Vaccines Aged Out No longer eligi ble based on patient's age to complete this topic Procedures Procedure Name Priority Date/Time Associated Diagnosis Comments CT ABDOMEN PELVIS W CONTRAST ED 06/20/2024 11:55 PM CDT EGFR STAT 06/20/2024 9:19 PM CDT DIFFERENTIAL AUTO STAT 06/20/2024 9:1 9 PM CDT LIPASE STAT 06/20/2024 9:19 PM CDT COMPREHENSIVE METABOLIC PANEL STAT 06/20/2024 9:19 PM CDT CBC WITH AUTO DIFFERENTIAL STAT 06/20/2024 9:19 PM CDT from Last 3 Months Results * CT Abdomen Pelvis W Contrast (06/20/2024 11:55 PM CDT) Anatomical Region Laterality Modality Body N/A Computed Tomogra phy 06/20/2024 11:5 8 PM CDT Narrative 06/21/2024 12:01 AM CDT EXAM DESCRIPTION: CT ABDOMEN PELVIS W CONTRAST REASON FOR STUDY: LLQ abdominal pain Constipation for 1 month TECHNIQUE: CT scan of the abdomen and pelvis performed with intravenous and without oral contrast using helical scanning technique with dynamic intravenous contrast injection. Reconstructed coronal and sagittal MPR images reviewed. All images stored on PACS. Automated exposure control was used as a dose optimization technique for this examination. CONTRAST TYPE/DOSE: 75mL of IOVERSOL 350 MG IODINE/ML INTRAVENOUS SYRINGE injected via intravenous COMPARISON: None FINDINGS: LOWER CHEST: Lung bases are clear. Heart size normal. No effusion. LIVER/BILIARY: Moderate hepatic steatosis. Biliary tree normal in caliber. GALLBLADDER: Normal. SPLEEN: Normal. PANCREAS: Normal. ADRENAL GLANDS: Normal. KIDNEYS/URINARY TRACT: Unremarkable. GI: Stomach and small bowel appear normal. Colon and appendix unremarkable. OTHER ABDOMINAL/PELVIS: Major vascular structures are grossly patent and normal in caliber. No enlarged lymph node or free fluid. MSK: Minimal disc disease and facet arthropathy. Mild hip and SI joint arthrosis. BODY WALL: Unremarkable. IMPRESSION: No diverticulitis, urinary tract obstruction/inflammation, or other abnormality identified to account for left lower quadrant pain. THIS IS AN ELECTRONICALLY VERIFIED FINAL REPORT 06/21/2024 12:01 AM - Electronically signed by Oziel Vallecillo M.D. AR: JENNIFER Report ID: [id number] Reading Location: [id number] Procedure Note Oziel Vallecillo MD - 06/21/2024 EXAM DESCRIPTION: CT ABDOMEN PELVIS W CONTRAST REASON FOR STUDY: LLQ abdominal pain Constipation for 1 month TECHNIQUE: CT scan of the abdomen and pelvis performed with intravenousand without oral contrast using helical scanning technique with dynamic intravenous contrast injection. Reconstructed coronal and sagittal MPRimages reviewed. All images stored on PACS. Automated exposure control was usedas a dose optimization technique for this examination. CONTRAST TYPE/DOSE: 75mL of IOVERSOL 350 MG IODINE/ML INTRAVENOUSSYRINGE injected via intravenous COMPARISON: None FINDINGS: LOWER CHEST: Lung bases are clear. Heart size normal. No effusion. LIVER/BILIARY: Moderate hepatic steatosis. Biliary tree normal incaliber. GALLBLADDER: Normal. SPLEEN: Normal. PANCREAS: Normal. ADRENAL GLANDS: Normal. KIDNEYS/URINARY TRACT: Unremarkable. GI: Stomach and small bowel appear normal. Colon and appendixunremarkable. OTHER ABDOMINAL/PELVIS: Major vascular structures are grossly patent and normal in caliber. No enlarged lymph node or free fluid. MSK: Minimal disc disease and facet arthropathy. Mild hip and SI joint arthrosis. BODY WALL: Unremarkable. IMPRESSION: No diverticulitis, urinary tract obstruction/inflammation, or other abnormality identified to account for left lower quadrant pain. THIS IS AN ELECTRONICALLY VERIFIED FINAL REPORT 06/21/2024 12:01 AM - Electronically signed by Oziel Vallecillo M.D. AR: JENNIFER Report ID: [id number] Reading Location: [place] [address] Bin Esposito MD IMG CT PROCEDURES Final Result * eGFR (06/20/2024 9:19 PM CDT) eGFR >90 >=60 mL/min/1. 73 m2 Comment: Interpretive Data Reference Interval Normal >/= 90 mL/min/1.73m2 Mildly decreased* 60 - 89 mL/min/1.73m2 Mildly to moderately decreased 45 - 59 mL/min/1.73m2 Moderately to severely decreased 30 - 44 mL/min/1.73m2 Severely decreased 15 - 29 mL/min/1.73m2 Kidney Failure < 15 mL/min/1.73m2 *Relative to young adult level Estimated glomerular filtration rate is determined by the 2020 CKD-EPI equation recommended by the National Kidney Foundation (A Unifying Approach to GFR Estimation: Recommendations of the NKF-ASK Task Force on Reassessing the Inclusion of Race in Diagnosing Kidney Disease, JASN 202). The CKD-EPI equation should not be used for patients with unstable renal function and has not been validated in children and those over 70. Current interpretive data was last reviewed 2020. Blood 06/20/2024 9:19 PM CDT 06/20/2024 9:42 PM CDT us Mamadou Rivas MD LAB BLOOD ORDERABLES Final R esult [facility] [place] [address] [facility] Department [place] [address] 89 * (ABNORMAL) Differential, auto (06/20/2024 9:19 PM CDT) Neutrophil abs 7.69(H) 1.50 - 6.50 K/cumm Imm gran abs 0.12(H) 0.00 - 0.10 K/cumm [facility] ([place]) Lymphocyte abs 3.15 0.80 - 3.30 K/cumm [facility] ([place]) Monocyte abs 1.03(H) 0.20 - 0.80 K/cumm [facility] ([place]) Eosinophil abs 0.11 0.00 - 0.50 K/cumm [facility] ([place]) Basophil abs 0.05 0.00 - 0.10 K/cumm [facility] ([place]) Neutrophil pct 63.3 % [facility] ([place] Comment: Interpretive Data Percent cell count reference ranges are not reported, since discordance with absolute values may lead to misinterpretation of CBC data. Current Interpretive Data was last revised on 2017. Imm gran pct 1.0 % [facility] Comment: Interpretive Data Percent cell count reference ranges are not reported, since discordance with absolute values may lead to misinterpretation of CBC data. Current Interpretive Data was last revised on 2017. Lymphocyte pct 25.9 % [facility] Comment: Interpretive Data Percent cell count reference ranges are not reported, since discordance with absolute values may lead to misinterpretation of CBC data. Current Interpretive Data was last revised on 2017. Monocyte pct 8.5 % [facility] Comment: Interpretive Data Percent cell count reference ranges are not reported, since discordance with absolute values may lead to misinterpretation of CBC data. Current Interpretive Data was last revised on 2017. Eosinophil pct 0.9 % [facility] Comment: Interpretive Data Percent cell count reference ranges are not reported, since discordance with absolute values may lead to misinterpretation of CBC data. Current Interpretive Data was last revised on 2017. Basophil pct 0.4 % [facility] Comment: Interpretive Data Percent cell count reference ranges are not reported, since discordance with absolute values may lead to misinterpretation of CBC data. Current Interpretive Data was last revised on 2017. Blood 06/20/2024 9:19 PM CDT 06/20/2024 9:41 PM CDT us Bin Esposito MD LAB BLOOD ORDERABLES Final Res ult [facility] [address] [facility] Department [place] [address] * (ABNORMAL) CBC with auto differential (06/20/2024 9:19 PM CDT) WBC 12.15(H) 3.80 - 9.90 K/cumm Hgb 16.1 13.0 - 17.5 g/dL [facility] Hct 46.1 38.9 - 50.3 % [facility] Plt 149(L) 150 - 400 K/cumm [facility] MPV 12.5(H) 9.1 - 12.3 fL [facility] RBC 5.34 4.30 - 5.80 M/cumm [facility] MCV 86.3 81.3 - 96.4 fL [facility] MCH 30.1 27.1 - 33.3 pg [facility] MCHC 34.9 32.3 - 35.7 g/dL [facility] RDW CV 13.1 11.1 - 14.9 % [facility] RDW SD 40.6 35.7 - 48.1 fL [facility] NRBC abs 0.00 0.00 - 0.01 K/cumm [facility] Blood Venous blood specimen / Unknown 06/20/2024 9:19 PM CDT 06/20/2024 9:41 PM CDT us Bin Esposito MD LAB BLOOD ORDERABLES Final Res ult [facility] [address] [facility] Department [place] [address] * Lipase (06/20/2024 9:19 PM CDT) Lipase 25 10 - 99 Units/L Blood Venous blood specimen / Unknown 06/20/2024 9:19 PM CDT 06/20/2024 9:42 PM CDT us Bin Esposito MD LAB BLOOD ORDERABLES Final Res ult [facility] [address] [facility] Department [place] [address] * (ABNORMAL) Comprehensive metabolic panel (06/20/2024 9:19 PM CDT) Sodium 135 135 - 145 mmol/L Potassium, pl 4.0 3.3 - 4.9 mmol/L [facility] Chloride 96(L) 97 - 110 mmol/L [facility] CO2 26 22 - 32 mmol/L [facility] Anion gap 13 2 - 15 mmol/L [facility] BUN 9 6 - 25 mg/dL [facility] Creatinine 0.65(L) 0.80 - 1.30 mg/dL [facility] Glucose 113 70 - 199 mg/dL [facility] Comment: Interpretive Data Fasting glucose >/= 126 mg/dl is diagnostic for diabetes. Fasting is defined as no caloric intake for at least 8 hours. Fasting glucose between 100 mg/dl to 125 mg/dl is diagnostic of prediabetes. In a patient with classic symptoms of hyperglycemia or hyperglycemic crisis, a random glucose >/= 200 mg/dl is diagnostic for diabetes. In the absence of unequivocal hyperglycemia, results should be confirmed by repeat testing. The classification and Diagnosis of Diabetes Diabetes Care 2021; 46: S19-S40. Current interpretive data was last revised 2022. Calcium 9.3 8.5 - 10.3 mg/dL [facility] Bilirubin, total 0.4 0.1 - 1.2 mg/dL [facility] Protein, pl 7.1 6.5 - 8.5 g/dL [facility] Albumin 4.1 3.5 - 5.0 g/dL [facility] Alk phos 79 40 - 130 Units/L [facility] ALT 44 7 - 55 Units/L [facility] AST 29 10 - 50 Units/L [facility] Comment: Hemolysis present. Results may be affected. Slightly Hemolyzed Specimen Blood 06/20/2024 9:19 PM CDT 06/20/2024 9:42 PM CDT us Bin Esposito MD LAB BLOOD ORDERABLES Final Res ult [facility] [address] [facility] Department [place] [address] from Last 3 Months Insurance [facility] CHO[facility] PL[facility] Care Teams Senior Mechanical Development Engineer Relationship Specialty Start Date End Date No, Physician PCP - General 01/15/22
--- OUTSIDE RECORDS SUMMARY | 2024-08-15 16:45 | XMS_ITS | Referral Summary ---
Author Organization [facility] Address [facility] [place] [address] Care Team Providers Care Etl Application Developer Name Role Phone No, Physician Primary Care Provider [phone] Encounters Date Type Department Care Team Description 06/20/2024 9:47 PM CDT - 06/21/2024 1:10 AM CDT Emergency [facility] Emergency Department [address] [place] [address] Bin Esposito MD Abdominal pain (Primary Dx); Constipation, unspecified constipation type Discharge Disposition: Discharge to home or self care from Last 3 Months Allergies Active Allergy Reactions Criticality Noted Date Comments Penicillins Other (See comments) Low 01/15/2022 Unknown, pt states he was told Medications polyethylene glycol (MIRALAX) 17 gram/dose bulk powder Take 17 g by mouth daily 238 g 06/21/2024 Active Immunizations Immunization Administration Dates Next Due Tdap [...] on file 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 AR: JENNIFER Report ID: [id number] Reading Location: [id number] Procedure Note Oziel Vallecillo MD - 06/21/2024 [...] Oziel Vallecillo M.D. AR: JENNIFER Report ID: [id number] Reading Location: [id number] us Bin Esposito MD IMG CT PROCEDURES Final [...] of Race in Diagnosing Kidney Disease, JASN 2020). The CKD-EPI equation should not be used for patients with unstable renal function and has not been validated in children and those over 70. Current interpretive data was last reviewed 2020. Blood 06/20/2024 9:19 PM CDT 06/20/2024 9:42 PM CDT Mamadou Rivas MD LAB BLOOD ORDERABLES Final R esult [facility] 1 [facility] Department of Laboratories [place], [place] [id number] * (ABNORMAL) Differential, auto (06/20/2024 9:19 PM CDT) Neutrophil abs 7.69(H) 1.50 - 6.50 K/cumm Imm gran abs 0.12(H) 0.00 - 0.10 K/cumm [facility] ([place]) Lymphocyte abs 3.15 0.80 - 3.30 K/cumm [facility] ([place]) Monocyte abs 1.03(H) 0.20 - 0.80 K/cumm [facility] ([place]) Eosinophil abs 0.11 0.00 - 0.50 K/cumm [facility] ([place]) Basophil abs 0.05 0.00 - 0.10 K/cumm [facility] ([place]) Neutrophil pct 63.3 % [facility] ([place]) Comment: Interpretive Data Percent cell count reference ranges are not reported, since discordance with absolute values may lead to misinterpretation of CBC data. Current Interpretive Data was last revised on 2017. Imm gran pct 1.0 % [facility] ([place]) Comment: Interpretive Data Percent cell count reference ranges are not reported, since discordance with absolute values may lead to misinterpretation of CBC data. Current Interpretive Data was last revised on 2017. Lymphocyte pct 25.9 % [facility] ([place]) Comment: Interpretive Data Percent cell count reference ranges are not reported, since discordance with absolute values may lead to misinterpretation of CBC data. Current Interpretive Data was last revised on 2017. Monocyte pct 8.5 % [facility] ([place]) Comment: Interpretive Data Percent cell count reference ranges are not reported, since discordance with absolute values may lead to misinterpretation of CBC data. Current Interpretive Data was last revised on 2017. Eosinophil pct 0.9 % [facility] ([place] Comment: Interpretive Data Percent cell count reference ranges are not reported, since discordance with absolute values may lead to misinterpretation of CBC data. Current Interpretive Data was last revised on 2017. Basophil pct 0.4 % [facility] ([place]) Comment: Interpretive Data Percent cell count reference ranges are not reported, since discordance with absolute values may lead to misinterpretation of CBC data. Current Interpretive Data was last revised on 2017. Blood 06/20/2024 9:19 PM CDT 06/20/2024 9:41 PM CDT us Bin Esposito MD LAB BLOOD ORDERABLES Final Res ult [facility] ([place]) 1 [facility] Department [place] [address] * (ABNORMAL) CBC with auto differential (06/20/2024 [...] Final Res ult [facility] ([place]) 1 [facility] [employer] [place] [address] * Lipase (06/20/2024 9:19 PM CDT) Lipase 25 10 - 99 Units/L Blood Venous blood specimen / Unknown 06/20/2024 9:19 PM CDT 06/20/2024 9:42 PM CDT Bin Esposito MD LAB BLOOD ORDERABLES Final Res ult [facility] ([place]) 1 [facility] Department [place] [address] * (ABNORMAL) Comprehensive metabolic panel (06/20/2024 9:19 PM CDT) Sodium 135 135 - 145 mmol/L Potassium, pl 4.0 3.3 - 4.9 mmol/L [facility] Chloride 96(L) 97 - 110 mmol/L [facility] ([place]) CO2 26 22 - 32 mmol/L [facility]) Anion gap 13 2 - 15 mmol/L [facility]) BUN 9 6 - 25 mg/dL [facility] ([place]) Creatinine 0.65(L) 0.80 - 1.30 mg/dL [facility] ([place]) Glucose 113 70 - 199 mg/dL [facility] ([place]) Comment: Interpretive Data Fasting glucose [...] LAB BLOOD ORDERABLES Final Res ult [facility] ([place]) 1 [facility] Department [place] [address] from Last 3 Months Insurance [facility] [employer] [facility] HMO/PPO Address: [facility] [address] [place] [address] Care Teams Etl Application Developer Relationship Specialty Start Date End Date No, Physician PCP - General 01/15/22
[2024-08-15 18:21] LABS: Thyroid Stimulating Hormone Reflex 0.967 uIU/mL (0.465-4.68)
[2024-08-15 19:48] LABS: Add Urine Microscopic? YES; Appearance Urine Clear (Clear); Bacteria Urine None Seen /hpf; Bilirubin Urine Negative (Negative); Blood Urine Negative (Negative); Color Urine Yellow (Yellow); Glucose Urine UA 2+ mg/dL (Negative); Ketones Urine Trace mg/dL (Negative); Leukocyte Esterase Ur Negative LEU/UL (Negative); Nitrate Urine Negative (Negative); Non Pathogenic Casts 0-2; Protein Urine Trace mg/dL (Negative); RBC Urine 0-2 /hpf (0-2); Specific Grav Ur > 1.045 (1.001-1.035); Squamous Epithelial Cell Urine None Seen /hpf (Few); WBC Urine 0-5 /hpf (0-3); pH Urine 5.5 (5.0-9.0)
[2024-08-15 20:05] LABS: Amphetamine Screen Urine Negative (Negative); Barbiturate Screen Urine Negative (Negative); Benzodiazepines Screen Urine Negative (Negative); Cannabinoid Screen Urine Negative (Negative); Cocaine Screen Urine Negative (Negative); Methadone Screen Urine Negative (Negative); Opiate Screen Urine Negative (Negative); Phencyclidine Screen Urine Negative (Negative)
== END 2024-08-15 20:33 | disposition home or self-care (01) ==
PROVIDERS: Registered Nurse; Emergency Provider Student in an Organized Health Care Education/Training Program
DX: R06.02 Shortness of breath (principal); K59.00 Constipation, unspecified; K76.0 Fatty (change of) liver, not elsewhere classified
CPT/HCPCS: 36415; 71045; 74177; 80053; 80307; 81001; 82948; 83880; 84443; 84484; 85025; 85055; 85610; 85730; 93005; 99284; Q9967